=== PATIENT | male | born 1970 | race Caucasian/White ===

== ENCOUNTER 2019-12-09 15:13 | Emergency (ER) | payer OTHER ==
[~2019-12-09] VITALS: Ht 175.3 cm; Wt 131.8 kg
--- NOTE | 2019-12-09 16:10 | NUR ---
PT TO ROOM FROM LOBBY AT THIS TIME.
--- NOTE | 2019-12-09 17:54 | NUR ---
Pt and spouse updated on POC including pending tests and chart review by ERP. Provided w/ warm blanket, denied any further needs, questions/concerns. at this time.
[2019-12-09 18:05] LABS: BASOPHILS # (AUTO) 0.03 x10^3/uL (0-0.1); BASOPHILS % (AUTO) 0 % (0-1); EOSINOPHILS # (AUTO) 0.09 x10^3/uL (0-0.4); EOSINOPHILS % (AUTO) 2 % (1-7); LYMPHOCYTES # (AUTO) 0.95 x10^3/uL (1-3.4); LYMPHOCYTES % (AUTO) 16 % (22-44); MD NO; MEAN CORPUSCULAR HEMOGLOBIN 33.8 pg (27.5-34.5); MEAN CORPUSCULAR HGB CONC 33.9 g/dL (33.2-36.2); MEAN CORPUSCULAR VOLUME 99.7 fL (81-97); MEAN PLATELET VOLUME 8.3 fL (7.4-10.4); MONOCYTES # (AUTO) 0.83 x10^3/uL (0.2-0.8); MONOCYTES % (AUTO) 14 % (2-9); NEUTROPHILS # (AUTO) 4.07 x10^3/uL (1.8-6.8); NEUTROPHILS % (AUTO) 68 % (42-75); PLATELET COUNT 166 x10^3/uL (130-400); RED BLOOD COUNT 5.06 x10^6/uL (4.38-5.82); RED CELL DISTRIBUTION WIDTH 12.5 % (9.4-14.8)
[2019-12-09 18:14] LABS: ALANINE AMINOTRANSFERASE 51 U/L (12-78); ALBUMIN 3.4 g/dL (3.4-5.0); ANION GAP 9 mmol/L (5-15); CALCIUM 9.6 mg/dL (8.5-10.1); CHLORIDE 109 mmol/L (98-107)
[2019-12-09 18:17] LABS: ALKALINE PHOSPHATASE 114 U/L (45-117); BILIRUBIN,TOTAL 1.4 mg/dL (0.2-1.0); CREATININE 0.85 mg/dL (0.7-1.3); TOTAL PROTEIN 8.9 g/dL (6.4-8.2)
--- NOTE | 2019-12-09 18:23 | NUR ---
Pt and spouse provided w/ warm blanekts. US in process
[2019-12-09 18:29] VITALS: BP 153/85
--- NOTE | 2019-12-09 19:04 | NUR ---
REPORT FROM JASON GILLIAM, ASSUMING CARE OF PT AT THIS TIME
--- NOTE | 2019-12-09 19:04 | NUR ---
Report to MANE Berger.
--- NOTE | 2019-12-09 19:11 | NUR ---
ALL RESULTS BACK AT THIS TIME CHART UP FOR RECHECK
--- NOTE | 2019-12-09 20:04 | NUR ---
Patient/Caregiver given discharge instructions and they have confirmed that they understand the instructions. Patient ambulatory with steady gait.
== END 2019-12-09 20:05 | disposition home or self-care (01) ==
LOC: ED 19:30
DX: L03.116 Cellulitis of left lower limb (principal); R60.0 Localized edema; I10 Essential (primary) hypertension; Z86.718 Personal history of other venous thrombosis and embolism
CPT/HCPCS: 36415; 80053; 85025; 87040; 93970; 99285

== ENCOUNTER → 2020-02-15 | Outpatient (CLI) | payer OTHER | END | disposition home or self-care (01) | LOC: CVU 07:26 → EDSTATUS 08:00 | PROVIDERS: ATTEND Family Medicine | DX: I83.893 Varicose veins of bilateral lower extremities with other complications (principal); I10 Essential (primary) hypertension | CPT/HCPCS: 93970 ==